=== PATIENT | female | born 1995 | race Hispanic/Latino ===

== ENCOUNTER 2019-06-12 11:23 | Emergency (ER) | payer MEDICAID, OTHER ==
[~2019-06-12 11:23] MED LIST: PREN1TAB89 PO
[2019-06-12] MEDS ORDERED: DEXAMETHASONE SOD PHOSPHATE 10MG/ML 1ML VIAL ONE (12:20)
[2019-06-12] MEDS ORDERED: LIDOCAINE HCL-MPF 1% 2ML VIAL ONE (12:20)
[2019-06-12] MEDS ORDERED: CEFTRIAXONE SODIUM 1 GM ONE (12:20)
== END 2019-06-12 13:29 | disposition home or self-care (01) ==
LOC: EDH 11:23
DX: J10.1 Influenza due to other identified influenza virus with other respiratory manifestations (principal)
CPT/HCPCS: 71046; 81025; 87804 ×2; 96372 ×2; 99285; J0696; J1100; J3490